=== PATIENT | female | born 1985 | race African-American/Black ===

== ENCOUNTER 2016-12-09 08:24 | Emergency (ER) | payer MEDICAID ==
[~2016-12-09] VITALS: Ht 162.6 cm; Wt 86.2 kg
[~2016-12-09 08:24] MED LIST: PREN-96 PO
[2016-12-09 09:06] VITALS: BP 115/54
[2016-12-09] MEDS ORDERED: ACETAMINOPHEN 325 MG TAB PO ONE (09:45)
== END 2016-12-09 10:34 | disposition home or self-care (01) ==
LOC: ER 08:24
DX: S60.212A Contusion of left wrist, initial encounter (principal); M79.642 Pain in left hand; F17.210 Nicotine dependence, cigarettes, uncomplicated; Z88.6 Allergy status to analgesic agent; W19.XXXA Unspecified fall, initial encounter; Y93.89 Activity, other specified; Y99.8 Other external cause status; Y92.89 Other specified places as the place of occurrence of the external cause
CPT/HCPCS: 73110; 73130

== ENCOUNTER 2017-04-07 08:45 | Emergency (ER) | payer MEDICAID ==
[~2017-04-07] VITALS: Ht 162.6 cm; Wt 85.7 kg
[2017-04-07 09:00] VITALS: BP 108/73
[2017-04-07] MEDS ORDERED: HYDROcodone-ACET 10/325MG TAB PO ONE (09:45)
[2017-04-07] MEDS ORDERED: traMADol HCL 50 MG TAB PO ONE (10:00)
== END 2017-04-07 10:12 | disposition home or self-care (01) ==
LOC: ER 08:45
DX: G89.29 Other chronic pain (principal); M54.41 Lumbago with sciatica, right side; F17.210 Nicotine dependence, cigarettes, uncomplicated; Z88.6 Allergy status to analgesic agent; Z88.8 Allergy status to other drugs, medicaments and biological substances; Z79.899 Other long term (current) drug therapy

== ENCOUNTER 2017-11-11 09:02 | Emergency (ER) | payer MEDICAID ==
[~2017-11-11] VITALS: Ht 162.6 cm; Wt 84.8 kg
[2017-11-11 13:19] VITALS: BP 112/72
== END 2017-11-11 13:57 | disposition home or self-care (01) ==
LOC: ER 09:02
DX: G44.209 Tension-type headache, unspecified, not intractable (principal); R11.2 Nausea with vomiting, unspecified; Z90.89 Acquired absence of other organs; Z88.5 Allergy status to narcotic agent; Z88.8 Allergy status to other drugs, medicaments and biological substances; Z79.899 Other long term (current) drug therapy
CPT/HCPCS: 70450

== ENCOUNTER 2017-11-19 18:54 | Emergency (ER) | payer MEDICAID ==
[~2017-11-19] VITALS: Ht 162.6 cm; Wt 82.6 kg
[2017-11-19 19:49] LABS: Basophils # (auto) 0.1 uL; Basophils % (auto) 0.8 % (0.0-2.0); Eosinophils # (auto) 0 uL; Eosinophils % (auto) 0.3 % (0.0-7.0); Hematocrit 37.5 % (36.0-46.0); Hemoglobin 12.3 g/dL (12.2-16.2); Lymphocytes # (auto) 1.9 uL; Lymphocytes % (auto) 23.2 % (10.0-50.0); Mean Corpuscular Hemoglobin 27.7 pg (28.0-32.0); Mean Corpuscular Hgb Conc. 32.7 g/dL (32.0-36.0); Mean Corpuscular Volume 84.7 fL (80.0-100.0); Monocytes # (auto) 0.6 uL; Neutrophils # (auto) 5.6 uL; Neutrophils % (auto) 68.7 % (37.0-80.0); Platelet Count (auto) 240 10^3/uL (140-450); Red Blood Cells 4.43 10^6/uL (4.0-5.20); Red Cell Distribution Width 13.4 % (11.8-14.3); White Blood Cell 8.2 10^3/uL (4.4-10.8)
[2017-11-19 20:24] LABS: Albumin 4.3 g/dL (3.4-5.0); BUN/Creatinine Ratio 20.3; Calcium 8.9 mg/dL (8.5-10.1); Magnesium 2.4 mg/dL (1.6-2.6); Potassium 3.3 mmol/L (3.5-5.1)
[2017-11-19 20:27] LABS: Bilirubin, Total 0.4 mg/dL (0.2-1.0); Total Protein 7.4 g/dL (6.4-8.2)
[2017-11-19 23:42] VITALS: BP 134/69
== END 2017-11-19 22:30 | disposition left against medical advice (07) ==
LOC: EDBD 18:54 → ER 18:54
DX: R07.9 Chest pain, unspecified (principal); Z53.21 Procedure and treatment not carried out due to patient leaving prior to being seen by health care provider
CPT/HCPCS: 36415; 80053; 83735; 84484; 84702; 85025; 93005

== ENCOUNTER → 2018-06-24 | Outpatient (CLI) | payer MEDICAID ==
[~2018-06-24] MED LIST changes: +ACYC1CAP23 PO; +BIOT10TA2 PO; +IOHEXOL 350 MG/ML 100ML IJ ONE; +LORA-654 PO; +METOPROLOL TARTRATE 1MG/1ML-5ML VIAL IV ONE; +NITROGLYCERIN 0.4 MG SL TAB SL ONE; +TURM500C3 PO
== END | disposition home or self-care (01) ==
LOC: CT 08:13
PROVIDERS: ATTEND Internal Medicine
DX: I20.0 Unstable angina (principal)
CPT/HCPCS: 75571; 75574; Q9967

== ENCOUNTER 2018-07-27 06:38 | Day surgery (SDC) | payer MEDICAID ==
[~2018-07-27] VITALS: Ht 162.6 cm; Wt 96.2 kg
[~2018-07-27 06:38] MED LIST changes: -IOHEXOL 350 MG/ML 100ML IJ ONE; -METOPROLOL TARTRATE 1MG/1ML-5ML VIAL IV ONE; -NITROGLYCERIN 0.4 MG SL TAB SL ONE
[2018-07-27] MEDS ORDERED: LIDOCAINE 2% (LOCAL ANESTH.) PF 5ml SDV ONE (07:18)
[2018-07-27] MEDS ORDERED: ONDANSETRON HCL 4 MG/2 ML VIAL ONE (07:29)
[2018-07-27] MEDS ORDERED: fentaNYL CITRATE 100 MCG/2 ML VL ONE (07:29)
[2018-07-27] MEDS ORDERED: MIDAZOLAM HCL 1MG/1ML-2 ML VIAL ONE (07:29)
[2018-07-27] MEDS ORDERED: ISOPROTERENOL HCL INJECTION 1 MG in D5W 5% 250 ML IV SCH (08:30)
== END 2018-07-27 11:15 | disposition home or self-care (01) ==
LOC: CATH 06:38
PROVIDERS: ATTEND Specialist
DX: R55 Syncope and collapse (principal); Z87.891 Personal history of nicotine dependence; Z79.899 Other long term (current) drug therapy; Z88.6 Allergy status to analgesic agent; Z88.5 Allergy status to narcotic agent; Z98.51 Tubal ligation status; F41.9 Anxiety disorder, unspecified; Z82.49 Family history of ischemic heart disease and other diseases of the circulatory system
CPT/HCPCS: 93620; 99152; 99153; C1894; J1644; J3010; J7030; A6257; J2001; J2250; J2405; J7060

== ENCOUNTER 2019-08-16 15:32 | Emergency (ER) | payer MEDICAID, OTHER ==
[~2019-08-16] VITALS: Ht 162.6 cm; Wt 96.6 kg
[~2019-08-16 15:32] MED LIST changes: -LORA-654 PO; +LORA0.5T12 PO
[2019-08-16] MEDS ORDERED: MORPHINE SULFATE 4 MG/ML SYR/VIAL IV ONE (16:30)
[2019-08-16] MEDS ORDERED: ONDANSETRON HCL 4 MG/2 ML VIAL IV ONE (16:30)
[2019-08-16] MEDS ORDERED: LIDOCAINE 2% (LOCAL ANESTH.) PF 5ml SDV ONE (16:59)
[2019-08-16 17:00] VITALS: BP 103/59
[2019-08-16] MEDS ORDERED: TETANUS-DIPTH-ACEL PERTUSSIS 0.5ML SYRG IM ONE (17:00)
[2019-08-16] MEDS ORDERED: cefTRIAXone 1GM/50ML D5W 50 ML IV ONE (17:45)
== END 2019-08-16 18:42 | disposition home or self-care (01) ==
LOC: ER 15:32
DX: S01.81XA Laceration without foreign body of other part of head, initial encounter (principal); S46.911A Strain of unspecified muscle, fascia and tendon at shoulder and upper arm level, right arm, initial encounter; Z88.6 Allergy status to analgesic agent; Z88.8 Allergy status to other drugs, medicaments and biological substances; Z79.899 Other long term (current) drug therapy; W01.0XXA Fall on same level from slipping, tripping and stumbling without subsequent striking against object, initial encounter; Y93.89 Activity, other specified; Y99.8 Other external cause status; Y92.89 Other specified places as the place of occurrence of the external cause
CPT/HCPCS: 12013; 70450; 71045; 71101; 72170; 73030; 73562; 90471; 90715; 96365; 96375; 99284; J0696; J2001; J2270; J2405